=== PATIENT | male | born 1960 | race Caucasian/White ===

== ENCOUNTER 2016-02-16 15:09 | Emergency (ER) | payer OTHER ==
--- NOTE | 2016-02-16 16:32 | RAD ---
02/16/2016 4:28 PM CHEST - 2 VIEWS History: Pneumonia. Symptoms not improving despite antibiotic treatment. Comparison: 01/24/2016 Findings: Two views of the chest are obtained. The lungs demonstrate slight prominence to the left lower lobe interstitium which may relate to the patient's recently diagnosed pneumonia. Otherwise lungs are clear without effusion or pneumothorax. The cardiomediastinal silhouette is unremarkable.. The osseous structures are intact.. IMPRESSION: Possible retrocardiac interstitial prominence which may relate to the patient's recent diagnosis of pneumonia. Otherwise exam is unremarkable. Follow-up as clinically warranted..
[2016-02-16 17:18] LABS: ABSOLUTE NEUTROPHIL COUNT 1.9 K/mm3 (1.8-7.7); BASO % 0.9 % (0.2-1.0); EOS % 0.9 % (0.9-2.9); IMM NEUT% 0.2 % (0-1); LYMPH # 1.7 (1.0-4.8); LYMPH % 40.7 % (15-45); MEAN CELL VOLUME 75.1 fl (80.0-94.0); MEAN CORPUSCULAR HEMOGLOBIN 23.9 pg (27.0-31.0); MEAN CORPUSCULAR HGB CONC 31.8 g/dl (33.0-37.0); MEAN PLATELET VOLUME 8.7 fl (7.4-10.4); MONO # 0.5 (0.0-0.8); MONO % 12.6 % (4-12); NEUT % 44.7 % (43-75); PLATELET COUNT 318 K/mm3 (130-400); RED CELL DISTRIBUTION WIDTH 14.8 % (11.5-14.5)
[2016-02-16] MEDS ORDERED: CEFTRIAXONE 1 GRAM DUPLEX 50 ML IV ONE (17:21)
[2016-02-16 17:38] LABS: ALB/GLOB RATIO 1.3 (>1.0); ALBUMIN 4.1 gm/dL (3.5-5.7); CALCIUM 9.2 mg/dL (8.6-10.3)
[2016-02-16] MEDS ORDERED: AZITHROMYCIN 250 MG TABLET ONE (18:11)
[2016-02-16] MEDS ORDERED: PANTOPRAZOLE 40 MG TABLET DR PO ONE (18:12)
== END 2016-02-16 18:33 | disposition home or self-care (01) ==
LOC: ED 15:09
DX: J18.9 Pneumonia, unspecified organism (principal); R05 Cough
CPT/HCPCS: 85025; 87040 ×2; 80053; 71020; 99283 ×2; 96374; 36415; A9270 ×2; J0696

== ENCOUNTER 2016-02-18 17:25 | Observation (INO) | payer OTHER ==
[2016-02-18] MEDS ORDERED: IOPAMIDOL 370 (76%) 100 ML VIAL IV ONE (17:26)
[2016-02-18 18:04] LABS: ABSOLUTE NEUTROPHIL COUNT 2.9 K/mm3 (1.8-7.7); BASO % 0.7 % (0.2-1.0); EOS # 0.2 (0.0-0.5); EOS % 4.1 % (0.9-2.9); HEMATOCRIT 43.3 % (32.0-52.0); HEMOGLOBIN 13.8 gm/l (14.0-18.0); IMM NEUT% 0.2 % (0-1); LYMPH # 2.3 (1.0-4.8); LYMPH % 38.2 % (15-45); MEAN CELL VOLUME 74.7 fl (80.0-94.0); MEAN CORPUSCULAR HEMOGLOBIN 23.8 pg (27.0-31.0); MEAN CORPUSCULAR HGB CONC 31.9 g/dl (33.0-37.0); MEAN PLATELET VOLUME 8.7 fl (7.4-10.4); MONO # 0.4 (0.0-0.8); MONO % 7.4 % (4-12); NEUT % 49.4 % (43-75); PLATELET COUNT 348 K/mm3 (130-400)
[2016-02-18 18:12] LABS: INR 0.96; PROTHROMBIN TIME 10.1 SECONDS (9.3-11.4)
[2016-02-18 18:19] LABS: ALB/GLOB RATIO 1.4 (>1.0); CALCIUM 8.9 mg/dL (8.6-10.3); MAGNESIUM 1.9 mg/dL (1.9-2.7)
--- NOTE | 2016-02-18 18:38 | CT ---
CHEST CTA HISTORY: Difficulty breathing with weight loss. Throat tightness. TECHNIQUE: Following the administration of 80 mL Isovue-300 intravenous contrast, contiguous axial images were acquired from the thoracic inlet to the diaphragmatic hiatus for CT pulmonary angiography. Three-dimensional rotational reformatted imaging of the pulmonary arterial tree was performed with maximum intensity projection technique on a dedicated workstation, and reviewed separately. FINDINGS: PULMONARY ARTERIAL TREE: Technically adequate enhancement: No dominant filling defects. THORACIC AORTA: Normal caliber. No evidence of dissection. LUNGS: No gross airspace abnormality. No pleural effusion. Minor bibasilar atelectatic change. CHELITA AND MEDIASTINUM: No abnormally enlarged lymph nodes. No gross esophageal wall thickening. A right paratracheal node measures 7 mm in width. AXILLAE: No grossly enlarged lymph nodes. UPPER ABDOMEN:No gross mass effect. Postcholecystectomy change. OSSEOUS STRUCTURES: No grossly destructive lesions. IMPRESSION: 1. No CTA evidence of proximal order pulmonary embolus. No gross airspace disease or mediastinal adenopathy. 2. Postcholecystectomy change. Results were electronically transmitted to the electronic medical record at 02/18/2016 at 1834 hours.
[2016-02-18] MEDS ORDERED: ALBUTEROL/IPRATROPIUM 2.5/0.5 MG 3 ML/EACH DOSE ONE (19:17)
[2016-02-18] MEDS ORDERED: REGADENOSON 0.1 MG DOSE IV ONE (19:22)
[2016-02-18] MEDS ORDERED: METHYLPRED SOD SUCCINATE 125 MG VIAL ONE (19:31)
[2016-02-18] MEDS ORDERED: LORAZEPAM 2 MG/ML 1ML SDV ONE (19:32)
[2016-02-18] MEDS ORDERED: BLISTEX LIPSTICK 1 EACH TP PRN (20:11)
[2016-02-18] MEDS ORDERED: BISACODYL 10 MG SUP PR PRN (20:11)
[2016-02-18] MEDS ORDERED: ACETAMINOPHEN 325 MG TABLET PO PRN (20:11)
[2016-02-18] MEDS ORDERED: BISACODYL 5 MG TABLET.EC PO PRN (20:11)
[2016-02-18] MEDS ORDERED: SODIUM CHLORIDE 0.9% 100 ML IV PRN (20:11)
[2016-02-18] MEDS ORDERED: MENTHOL/CETYLPYRD 1 EACH LOZENGE PO PRN (20:11)
[2016-02-18] MEDS ORDERED: MAGNESIUM HYDROXIDE 30 ML UDCUP PO PRN (20:11)
[2016-02-18] MEDS ORDERED: ALBUTEROL SULFATE MDI 60 PUFFS/INHALER IH PRN (20:44)
[2016-02-18] MEDS: DOCUSATE SODIUM 100 MG CAPSULE PO SCH (22:03)
[2016-02-18] MEDS: FLUTICASONE/SALMETEROL 500/50 14 PUFFS/DISK IH SCH (22:03)
[2016-02-19 01:38] VITALS: BMI 29.4
--- NOTE | 2016-02-19 06:47 | HP ---
Robert Holley [id number] DATE OF ADMISSION: February 18, 2016 CHIEF COMPLAINT: Dyspnea. HISTORY OF PRESENT ILLNESS: The patient is a 55-year-old male with a past medical history significant for asthma and generalized anxiety disorder who presented to [facility] Emergency Department for a second visit this week with complaints of dyspnea. He has had frequent visits to the emergency department with this complaint and has been treated with several rounds of antibiotics and steroids since January 23 when he first presented to the emergency department. He has taken two Z-Sanchez's and a round of Levaquin without improvement. In the emergency department, he had peak flow readings as high as 550 and had persistent symptoms. He has had some intermittent chest pains as well off and on and with risk factors of hypertension and hypercholesterolemia he was referred to the hospitalist service for observation. REVIEW OF SYSTEMS: He has had low grade temps of 99.5. He complains of malaise and has had no recent upper respiratory symptoms. He has had a cough which is nonproductive. He has had some palpitations at times. He denies any nausea, vomiting, diarrhea, or constipation. He does get some epigastric abdominal pain associated with an incisional hernia. He denies any new arthralgia's. He has had no headaches, fainting, blackouts, or seizures. No urinary complaints. PAST MEDICAL HISTORY: Significant for chest pain rule out, hospitalization in February 2015 at [facility]. He never had a stress after that. He saw his education teacher at [facility] in September and they did not think that, that was indicated. He has been followed by [facility] for chest pains in the past. Had a full cardiac workup including an angiogram in 2013 which was negative for any coronary artery disease. He had some minimal anterobasal hypokinesis on echocardiogram, but no structural disease and normal ejection fraction was seen. He has never had any arrhythmia's. He has hypertension and dyslipidemia. He has been trying to control his lipids with his diet. He has had history of depression with anxiety and recently had his antidepressant changed from Celexa to Zoloft. He has had a history of asthma since the age of 5. PAST SURGICAL HISTORY: Significant for cholecystectomy about 10 to 15 years ago. He had an open Wes fundoplication as well as an incisional hernia repair in 2010. He has had a recurrent incisional hernia. He had a coronary angiogram in February 2013 by [facility]. ALLERGIES: HE HAS AN ALLERGY DOCUMENTED TO COMPAZINE. CURRENT MEDICATIONS: He has medication list which consist of: 1. Prilosec 40 mg daily. 2. Prevacid 15 mg twice daily. 3. Zithromax 250 mg daily. 4. Zoloft 50 mg daily. 5. Singulair 10 mg daily. 6. Albuterol 2.5 mg nebulized every 4 hours as needed for wheezing. 7. Cozaar 25 mg daily. 8. Atarax 50 to 100 mg every 4 hours for anxiety. 9. Advair diskus inhaler 500/50 mcg inhaler one puff twice daily. 10. Flonase nasal spray two sprays in each nostril daily as needed for allergies, usually need in the summer. 11. Albuterol HFA meter dose inhaler 1 to 2 puffs every 4 hours as needed for wheezing. 12. Enteric coated aspirin 81 mg daily. FAMILY HISTORY: Significant for a father with heart failure and dementia. His mother of leukemia. He has a sister who has had deep vein thromboses. SOCIAL HISTORY: Patient is currently going through a divorce, in fact he was kicked out of his house today. He is a computer systems security analyst. They have four children together age 11, 17, 18, and 22. He is a former smoker after about 20 pack years he quit smoking about 12 years ago. He denies illicit drug use. Rarely drinks alcohol. His primary care provider is Dr. Tyron Maria. PHYSICAL EXAMINATION: VITALS: Temperature is 98.3, pulse 135 after an albuterol treatment, blood pressure is 126/92, respirations 20, oxygen saturation are 96% on room air. Weight has not yet been performed. GENERAL: This is an obese male in no acute distress. HEENT: Unremarkable. NECK: Supple without lymphadenopathy or thyromegaly. LUNGS: Clear to auscultation bilaterally. CARDIOVASCULAR: Reveals a regular tachycardia without a murmur. ABDOMEN: Reveals a midline incision with a hernia, nothing incarcerated. Positive bowel sounds. No tenderness. No organomegaly. EXTREMITIES: Show no peripheral edema. DIAGNOSTICS: On the older worker specialist the patient has no ST depression. I do not see a 12-lead EKG. Diagnostic imaging included a CT of the chest showing no evidence of pulmonary embolism and there is no evidence of any airspace disease or adenopathy. LABORATORY STUDIES: Consistent of a CBC with a white count of 5.9, hemoglobin 13.8, platelet count of 348,000. Coagulation panel is normal. Chemistry profile is normal. Random glucose is borderline elevated at 119. Cardiac enzymes are negative with a troponin of less than 0.01. Alcohol screen is negative. Influenza A and B screen are negative. ASSESSMENT: The patient myles shortness of breath and atypical chest pains with a history of asthma. He did have peak flow measurement today showing pre-bronchodilator peak flow of 550 and a post-bronchodilator treatment of 530 and this is in the normal range. Suspect this is all anxiety and he has a history of depression with anxiety with increased stressors. He does have risk factors of coronary artery disease including hypercholesterolemia and hypertension. He will be observed overnight on telemetry with serial cardiac enzymes. Will plan on doing a Lexiscan myoview study tomorrow. I am going to encourage him to stop using the antibiotics and to cut back on his albuterol use and considering increasing his Zoloft dosage. May consider short term treatment of anxiety medicines such as a benzodiazepine, but I am concerned about the habit forming nature of these medications and will probably defer to his primary care provider regarding that. Anticipate the patient will likely discharge home tomorrow especially if his workup is negative. Further treatment and studies will depend on his hospital course. JOB: [id number] CC: Dr. Tyron Maria
[2016-02-19 07:25] LABS: CHOLESTEROL RISK RATIO 4.9 (4.0-6.7)
[2016-02-19] MEDS: FLUTICASONE/SALMETEROL 500/50 14 PUFFS/DISK IH SCH ×2 (07:54→09:00)
[2016-02-19] MEDS ORDERED: SERTRALINE HCL 50 MG TABLET PO SCH (09:00)
[2016-02-19] MEDS ORDERED: LOSARTAN POTASSIUM 50 MG TABLET PO SCH (09:00)
[2016-02-19] MEDS ORDERED: OMEPRAZOLE 40 MG CAPSULE.DR PO SCH (09:00)
[2016-02-19] MEDS ORDERED: ASPIRIN (ENTERIC COATED) 81 MG TABLET.EC PO SCH (09:00)
[2016-02-19] MEDS ORDERED: PANTOPRAZOLE 40 MG TABLET DR PO SCH (09:00)
[2016-02-19] MEDS ORDERED: LORAZEPAM 2 MG/ML 1ML SDV ONE (11:00)
[2016-02-19] MEDS ORDERED: LORAZEPAM 2 MG/ML 1ML SDV IV ONE ×2 (11:10→12:33)
--- NOTE | 2016-02-19 13:07 | NUC MED ---
CARDIAC STRESS MULTIPLE STUDY COMPARISON: None HISTORY: Chest pain and shortness of breath. Former cigarette smoker. Cardiac catheterization 3 years ago. TECHNIQUE: Gated SPECT performed after IV injection sestamibi at rest and again after pharmacologic stress. End diastolic and end systolic measurements of left ventricular volume were used to calculate the ejection fracture. Computer generated wall motion reproduction was performed. DOSE: Sestamibi (rest): 12.3 mCi Sestamibi (stress): 36.7 mCi Lexiscan: 0.4 mg ECG findings: See separate report by Dr. Lb Rogers. FINDINGS: Left ventricle perfusion at rest: Normal Left ventricle perfusion at stress: Normal Ejection fraction: 71% Wall motion: Normal IMPRESSION: No fixed or reversible defect. Normal ejection fraction of greater than 50 percent and normal wall motion.
[2016-02-19 13:36] VITALS: BP 128/88
[2016-02-19] MEDS: DOCUSATE SODIUM 100 MG CAPSULE PO SCH (14:21)
--- NOTE | 2016-02-20 07:50 | DS ---
Robert Holley ADMIT DATE: 02/18/2016 DISCHARGE DATE: 02/19/2016 ADMIT DIAGNOSES: 1. Shortness of breath. 2. Anxiety. DISCHARGE DIAGNOSES: 1. Shortness of breath. 2. Anxiety. PROCEDURES: Lexiscan myoview, negative for fixed or reversal defects with an ejection fraction of greater than 70%. ADMIT HISTORY AND PHYSICAL: Please see Dr. Denton's note for details. Briefly, Mr. Holley is a [id number] who has a history of anxiety as well as asthma. He has been in the emergency room multiple times in previous weeks with continued shortness of breath and chest pain. He has been through multiple antibiotics and multiple steroid doses with no affect. The back story is that he is under quite a bit more stress going through a divorce and having some living arrangement changes. He presented again to the emergency room on night of admission with again shortness of breath and chest pain. He had a coronary catheterization back in 2013 that was within normal limits, however, given his persistent symptoms hospitalist service was requested to observe him overnight and perform a stress test. HOSPITAL COURSE: He remained stable overnight. Cardiac enzymes remained negative. On the morning of discharge a Lexiscan myoview was performed with normal results as noted above. I did have a discussion about the nature of anxiety and stress and how this may be playing into his symptoms. He does agree to follow up with his regular physician to discuss this within the next week. Discharge follow up would be Dr. Tyron Maria next week as scheduled. DISCHARGE MEDICATIONS: As prior to admit as follows: 1. Aspirin 81 mg by mouth daily. 2. Ventolin MDI as needed. 3. Albuterol nebulizer as needed. 4. Flonase 2 sprays daily. 5. Atarax 50 to 100 mg by mouth every 4 hours as needed. 6. Advair 500/50 one inhaled twice daily. 7. Prevacid 15 mg by mouth twice daily. 8. Losartan 25 mg by mouth daily. 9. Singulair 10 mg by mouth daily. 10. Omeprazole 40 mg by mouth daily. 11. Sertraline 50 mg by mouth daily. JOB: [id number] CC: Dr. Tyron Maria
== END 2016-02-19 14:25 | disposition home or self-care (01) ==
LOC: ED 17:25 → MS 19:21
PROVIDERS: ADMIT Family Medicine; ATTEND Family Medicine
DX: R06.02 Shortness of breath (principal); F41.0 Panic disorder [episodic paroxysmal anxiety]; J45.909 Unspecified asthma, uncomplicated; R07.9 Chest pain, unspecified; I10 Essential (primary) hypertension; E78.00 Pure hypercholesterolemia, unspecified; F32.9 Major depressive disorder, single episode, unspecified
CPT/HCPCS: 83880; 85025; 80053; 80307; 80061; 83735; 85610; 84484 ×2; 36415; 78452; 71275; 87804; 94640; 96375; 99285 ×2; 96374; 93017; 93005; 96376; A9270 ×7; J2060 ×3; J2930; J2785; Q9967; A9500; G0378 ×2

== ENCOUNTER 2016-02-26 07:56 | Day surgery (SDC) | payer OTHER ==
[~2016-02-26 07:56] MED LIST: LACTATED RINGERS 1,000 ML IV SCH
[2016-02-26] MEDS ORDERED: LACTATED RINGERS 1,000 ML ONE (07:59)
[2016-02-26] MEDS ORDERED: IV START KIT ONE (07:59)
[2016-02-26] MEDS ORDERED: PROPOFOL 20 ML IV ONE (08:06)
[2016-02-26] MEDS ORDERED: LIDOCAINE Viscous 2% 15 ML UDCUP ONE (08:06)
[2016-02-26 15:45] LABS: HELICOBACTER PYLORII DETECTION NEGATIVE (NEGATIVE)
--- NOTE | 2016-03-03 12:41 | PROCNOTE ---
Robert Holley : 1960 ACCT: [id number] DATE: 03/03/2016 This 55-year-old male patient within the practice of Dr. Tyron Maria underwent upper endoscopy on February 25 for chronic cough and heartburn. The upper endoscopy demonstrated reflux esophagitis and changes compatible with phi esophagitis. Biopsies have confirmed the presence of phi within the esophagus. The patient has been contacted and informed and Diflucan 100 mg daily for 10 days have been added to his prescription of pantoprazole. Medical follow up will be by Dr. Tyron Maria. JOB: [id number] CC: Dr. Tyron Maria
--- NOTE | 2016-03-03 15:31 | SURGPATH ---
[facility] [address] [place] [id number] Patient Name: MEEK CHRISTIE MR#: [id number] : 1960 Gender: M Specimen #: [id number] Collected: 02/26/2016 Received: 02/27/2016 Reported: 03/01/2016 Submitting Phys: CANDIDO FIELD Copy To Phys: [facility] OLEA TOMAS Clinical History / Pre-Operative Diagnosis: Heartburn; dysphagia; shortness of breath; cough; weight loss; rule out gastritis, esophagitis and Maura Specimen Source / Surgical Procedure Performed: #1-antral biopsy; #2-esophageal biopsy at 36 cm Interpretation: 1. STOMACH, ANTRUM, BIOPSY: - MINIMAL REACTIVE GASTROPATHY - NO HELICOBACTER ORGANISMS SEEN ON ROUTINE STAIN 2. ESOPHAGUS, 30 CM, BIOPSY COLON -ACUTE CANDIDAL ESOPHAGITIS Electronically Signed Out Hannah Perez M.D. Gross Description: #1 The specimen is received in a formalin filled container labeled with the patient's name and "antral biopsy". A single hopkins biopsy is 0.5 cm. Totally embedded in cassette #1. #2 The specimen is received in a formalin filled container labeled with the patient's name and "esophageal biopsy at 36 cm". Four rankin biopsies are 0.2-0.5 cm. Totally embedded in cassette #2. Joshua Salguero Microscopic Description: Part 1: Sections show gastric antral and oxyntic mucosa with overall intact architecture. No significant active or chronic inflammation is seen. No Helicobacter organisms are seen on routine stain. No dysplasia or malignancy is seen. Minimal reactive gastropathy is seen with reactive foveolar hyperplasia. Part 2: Sections show detached strips of squamous epithelium without columnar mucosa, intestinal metaplasia, or dysplasia. The squamous epithelium does not show basilar hyperplasia, papillary elongation, or increased intraepithelial eosinophils, but acute inflammation is seen. Fungal organisms consistent with Maura are seen in the superficial layer of parakeratosis. 1: 40995 2: 05695 B37.81
== END 2016-02-26 09:10 | disposition home or self-care (01) ==
LOC: SDC 07:56
PROVIDERS: ATTEND Internal Medicine Gastroenterology
PROC: 0DB18ZX Excision of Upper Esophagus, Via Natural or Artificial Opening Endoscopic, Diagnostic (ICD-10-PCS; principal; 2016-02-26)
PROC: 0DB68ZX Excision of Stomach, Via Natural or Artificial Opening Endoscopic, Diagnostic (ICD-10-PCS; 2016-02-26)
DX: B37.81 Candidal esophagitis (principal); K29.70 Gastritis, unspecified, without bleeding; K29.80 Duodenitis without bleeding; R63.4 Abnormal weight loss; I10 Essential (primary) hypertension; F32.9 Major depressive disorder, single episode, unspecified; Z79.82 Long term (current) use of aspirin; Z68.30 Body mass index [BMI] 30.0-30.9, adult
CPT/HCPCS: 87081; 43239; A9270; J7120